=== PATIENT | male | born 1955 | race Asian ===

== ENCOUNTER 2022-08-20 19:00 | Emergency (ER) | payer MEDICARE ==
[2022-08-20] MEDS ORDERED: Ondansetron 4 MG Tab.DIS PO ONE (19:05)
[2022-08-20] MEDS ORDERED: GI Cocktail Oral Solution 30 ML PO ONE (19:05)
[2022-08-20] MEDS ORDERED: HYDROmorphone 1 MG/ML Syringe IM ONE (20:05)
[2022-09-06 14:04] LABS: ANION GAP 8.5 meq/L (7-15); CHLORIDE,CL 99 mmol/L (98-107); SODIUM,NA 137 mmol/L (136-145)
[2022-09-06 14:05] LABS: ESTIMATED GFR 68 mL/min (>=60)
== END 2022-08-20 20:40 ==
LOC: LL.ED 19:00
DX: K81.9 Cholecystitis, unspecified (principal)
CPT/HCPCS: 36415; 74019; 80053; 82150; 83605; 83690; 85025; 96372; 99284; A9270-GY; J1170